=== PATIENT | female | born 1980 | race American Indian/Alaskan Native ===

== ENCOUNTER 2021-03-15 20:11 | Emergency (ER) | payer SELFPAY | END 2021-03-15 20:16 | disposition left against medical advice (07) | LOC: ED 20:11 ==

== ENCOUNTER 2021-03-16 08:33 | Emergency (ER) | payer SELFPAY ==
--- NOTE | 2021-03-16 09:52 | Emergency Department Report ---
ED General Adult HPI - General Chief complaint: Pain General Stated complaint: RT LEG CYST Time Seen by Provider: 03/16/21 09:26 Source: patient Mode of arrival: Ambulatory Limitations: No Limitations - History of Present Illness Initial comments: 40-year-old -[place] female patient presents with complaints of chronic right leg pain. Patient's states that her pain is due to a large ovarian cyst and fibroid putting pressure on her nerves. Patient states she is scheduled to have a hysterectomy on 03/29/2021 and is visiting from [place] to relax for a week prior to her surgery. Patient states that she left her hydrocodone prescription at home and is requesting pain medication today. She states that Toradol causes her to " feel funny". She denies any new pain, leg swelling, shortness of breath, or fever/chills/sweats. - Related Data Previous Rx's Medication Instructions Recorded Last Taken Type Naproxen 500 mg PO BID PRN #20 tablet 03/16/21 Unknown Rx traMADoL [Ultram 50 MG tab] 50 mg PO Q8HR PRN #3 tablet 03/16/21 Unknown Rx Allergies Allergy/AdvReac Type Severity Reaction Status Date / Time No Known Allergies Allergy Unverified 03/16/21 08:36 ED Review of Systems ROS: Stated complaint: RT LEG CYST Other details as noted in HPI Constitutional: denies: malaise Respiratory: denies: cough, shortness of breath Musculoskeletal: denies: joint swelling Skin: denies: change in color Neurological: denies: numbness, paresthesias, abnormal gait ED Past Medical Hx - Past Medical History Hx Hypertension: Yes Additional medical history: OVARIAN CYST/ ANXIETY - Social History Smoking Status: Never Smoker Substance Use Type: None - Medications Home Medications: Home Medications Medication Instructions Recorded Confirmed Last Taken Type Naproxen 500 mg PO BID PRN #20 tablet 03/16/21 Unknown Rx traMADoL [Ultram 50 MG tab] 50 mg PO Q8HR PRN #3 tablet 03/16/21 Unknown Rx ED Physical Exam - General Limitations: No Limitations General appearance: alert, in no apparent distress - Head Head exam: Present: atraumatic, normocephalic - Eye Eye exam: Present: normal appearance. Absent: scleral icterus - Respiratory Respiratory exam: Present: normal lung sounds bilaterally. Absent: respiratory distress - Cardiovascular Cardiovascular Exam: Present: regular rate, normal rhythm - Extremities Exam Extremities exam: Present: full ROM. Absent: calf tenderness - Neurological Exam Neurological exam: Present: alert, altered, normal gait - Psychiatric Psychiatric exam: Present: normal affect, normal mood - Skin Skin exam: Present: warm, dry, intact, normal color. Absent: rash, cyanosis, diaphoretic ED Course Vital Signs 03/16/21 08:42 Temperature 97.7 F Pulse Rate 73 Respiratory 18 Rate Blood Pressure 130/87 O2 Sat by Pulse 100 Oximetry ED Medical Decision Making - Medical Decision Making 40-year-old -[place] female patient presents with complaints of chronic right leg pain. Patient's states that her pain is due to a large ovarian cyst and fibroid putting pressure on her nerves. Patient states she is scheduled to have a hysterectomy on 03/29/2021 and is visiting from [place] to relax for a week prior to her surgery. Patient states that she left her hydrocodone prescription at home and is requesting pain medication today. She states that Toradol causes her to " feel funny". She denies any new pain, leg swelling, shortness of breath, or fever/chills/sweats. Unable to confirm hydrocodone prescription in [place] RN [facility]MM[facility]OLOG[facility]. Patient given short prescription for naproxen and tramadol. Recommend follow-up with her COMPUTER TEACHER for further medication refills. Her vitals are normal, she is well-appearing, she is stable for discharge home. Strict return precautions discussed in detail with patient who verbalized understanding. Critical care attestation.: If time is entered above; I have spent that time in minutes in the direct care of this critically ill patient, excluding procedure time. ED Disposition Clinical Impression: Chronic leg pain Qualifiers: Laterality: right Qualified Code(s): M79.604 - Pain in right leg; G89.29 - Other chronic pain Disposition: DC-01 TO HOME OR SELFCARE Is pt being admited?: No Condition: Stable Additional Instructions: Please follow-up with your COMPUTER TEACHER for further medication refills or needs Prescriptions: Naproxen 500 mg PO BID PRN #20 tablet PRN Reason: pain traMADoL [Ultram 50 MG tab] 50 mg PO Q8HR PRN #3 tablet PRN Reason: Pain , Severe (7-10)
[2021-03-16 10:16] VITALS: BP 164/88
== END 2021-03-16 10:03 | disposition home or self-care (01) ==
LOC: ED 08:33
DX: M79.604 Pain in right leg (principal); G89.29 Other chronic pain; I10 Essential (primary) hypertension; Z79.899 Other long term (current) drug therapy
CPT/HCPCS: 99282